=== PATIENT | male | born 1965 | race Caucasian/White ===

== ENCOUNTER 2024-03-25 18:24 | Emergency (ER) | payer BC, SELFPAY ==
[2024-03-25 18:32] VITALS: BP 174/99; PULSE 76; RESP 16; TEMP 36.5; O2SAT 96; BMI 36.9
--- NOTE | 2024-03-25 19:07 | ED_ITS ---
HPI - Wound/Laceration General Chief Complaint: Laceration/Wound Stated Complaint: tree branch opened up head Time Seen by Provider: 03/25/24 18:27 History of Present Illness HPI narrative: Patient is a 58-year-old gentleman who was moving his neighbor's lawn on a riding lawn more when he came across a very sharp brain showed on a tree. This branch of avulsed a strip from his scalp approximately quarter of a cm wide in a 7 configuration on the top of his head. Of the wound is approximated. Patient received no direct blunt trauma to the head. Bleeding began immediately and has now stopped. Other than the missing tissue of the wound is well-approximated and non full-thickness. Patient neurologically has no complaints or concerns and does not take any blood thinners. He states he is up-to-date on his tetanus shot. Related Data Home Medications ?Medication ?Instructions ?Recorded ?Confirmed hydrochlorothiazide 12.5 mg tablet 12.5 mg PO DAILY 03/25/24 03/25/24 lansoprazole 30 mg capsule,delayed 30 mg PO DAILY 03/25/24 03/25/24 release losartan 100 mg tablet 100 mg PO DAILY 03/25/24 03/25/24 sildenafil 100 mg tablet 100 mg PO DAILY PRN 03/25/24 03/25/24 Allergies Allergy/AdvReac Type Severity Reaction Status Date / Time codeine AdvReac Unknown Vomiting Verified 03/25/24 18:31 Review of Systems Status of ROS: Reports: 10 or more systems reviewed and unremarkable except as noted in History and below Exam Narrative: Exam Narrative: EXAM GENERAL: Patient appears comfortable and well. EYES: No scleral icterus. ENT: Tympanic membranes and oropharynx normal. THYROID: no thyroid nodules or thyromegaly. LYMPH: No supraclavicular or cervical lymphadenopathy. SKIN: Avulsion of skin noted on the scalp as above. Total length approximately 15 cm EXT: No dependent lower extremity pedal edema. HEART: Regular rate and rhythm with no murmurs, rubs, or gallops. LUNGS: Clear to auscultation bilaterally with no crackles or wheezes. ABD: Soft, non tender, non distended. PSYCH: Good eye contact, speech is not pressured. Const: Vital Signs, click to edit/add: Vital Signs - 24 hr 03/25/24 18:32 Temperature 97.7 F Pulse Rate [Pulse Oximeter] 76 Respiratory Rate 16 Blood Pressure [Ri ght Upper Arm] 174/99 H Pulse Oximetry 96 Oxygen Delivery Me thod Room Air Course Course ED Course: Patient seen and examined. Wound was sterilely cleaned. Vital Signs Vital signs: Initial Vital Signs Temperature 97.7 F 03/25/24 18:32 Temperature Source Temporal Artery Scan 03/25/24 18:32 Pulse Rate 76 03/25/24 18:32 Pulse Rhythm Regular 03/25/24 18:32 Respiratory Rate 16 03/25/24 18:32 Blood Pressure 174/99 H 03/25/24 18:32 Blood Pressure Mean 124 H 03/25/24 18:32 Blood Pressure Position Sitting 03/25/24 18:32 Pulse Oximetry 96 03/25/24 18:32 Oxygen Delivery Method Room Air 03/25/24 18:32 Vital Signs Temperature 97.7 F 03/25/24 18:32 Pulse Rate 76 03/25/24 18:32 Respiratory Rate 16 03/25/24 18:32 Blood Pressure 174/99 H 03/25/24 18:32 Pulse Oximetry 96 03/25/24 18:32 Oxygen Delivery Method Room Air 03/25/24 18:32 Temperature 97.7 F 03/25/24 18:32 Pulse Rate 76 03/25/24 18:32 Respiratory Rate 16 03/25/24 18:32 Blood Pressure 174/99 H 03/25/24 18:32 Pulse Oximetry 96 03/25/24 18:32 Oxygen Delivery Method Room Air 03/25/24 18:32 MDM - Wound/Laceration MDM Narrative Medical decision making narrative: Patient presents with avulsion of a very narrow strip off non full-thickness skin on his scalp. He is up-to-date on his tetanus shot. He did not receive any direct blunt trauma to his head. He was wearing a hat which seems to have helped. This time I do note impressive avulsion/abrasion but I do not believe closure of the wound would be helpful as it is not full thickness. I did instruct him on wound care with triple antibiotic and bandage is to keep clean. I do suspect he will he will steadily over the next 10-14 days. Discharge Plan Discharge Clinical Impression: Avulsion of skin Patient Disposition: Home, Self-Care Condition: Stable Instructions: Skin Avulsion (ED) Additional Instructions: Daily dressing changes with triple antibiotics or bacitracin Keep wound clean Follow-up with your doctor as needed. Activity Level: No Restrictions Discharge Diet: Regular Prescriptions: No Action sildenafil 100 mg tablet 100 mg PO DAILY PRN lansoprazole 30 mg capsule,delayed release(DR/EC) 30 mg PO DAILY losartan 100 mg tablet 100 mg PO DAILY hydrochlorothiazide 12.5 mg tablet 12.5 mg PO DAILY Stand Alone Forms: [employer] Info Instructions
== END 2024-03-25 19:34 | disposition home or self-care (01) ==
LOC: ED 19:31
PROVIDERS: Emergency Provider Internal Medicine
DX: S00.01XA Abrasion of scalp, initial encounter (principal)
CPT/HCPCS: 99282; 99283

== ENCOUNTER 2025-04-16 06:19 | Day surgery (SDC) | payer BC, SELFPAY ==
[2025-04-16] VITALS (12 sets, daily range): BP systolic 135–173; BP diastolic 82–98; PULSE 65–76; RESP 16–18; TEMP 36.2–36.6; O2SAT 93–100; BMI 36.9
[2025-04-16] MEDS: LACTATED RINGERS 1000 ML 1,000 ML 100 ML IV ×2 (06:30→08:26)
[2025-04-16] MEDS: SODIUM CHLORIDE 0.9 % (FLUSH) 10 ML SYRINGE IVF (06:45)
--- NOTE | 2025-04-16 07:05 | W.PM.H&PU ---
History & Physical Update History & Physical Update H&P Reviewed and patient assessed: No changes noted
--- NOTE | 2025-04-16 07:05 | PM.GSPRC ---
Operative Note Date of procedure: 04/16/25 Pre-op diagnosis: 1. Symptomatic umbilical hernia. Post-op diagnosis: 1. Incarcerated umbilical hernia containing preperitoneal fat. Type of Procedure: 1. Open umbilical hernia repair with mesh. Indications: 59-year-old male was seen in clinic for evaluation of umbilical hernia. Patient initially noticed a protrusion at his umbilicus several weeks prior to his presentation. Patient noticed when he was doing heavy lifting, the pain was bothersome. He denies any nausea or vomiting. On clinical exam at the superior aspect of the umbilicus there was an umbilical bulge that is approximately quarter in size. This was reducible. The fascial defect was felt to be approximately 1 cm. Given patient's clinical history and his physical exam, an open umbilical hernia repair was recommended. The procedure was discussed in detail. The risks associated procedure including infection, bleeding, injury to intra-abdominal organs, hernia recurrence, and the need for additional procedures were all discussed with the patient, and he agreed to proceed. Procedure Description: After discussing the risks and benefits of the procedure, the patient signed informed consent.? The operative site was marked and the patient was brought to the operating room and placed on the operating table in supine position.? Care was taken to pad the patient's pressure points.?? The patient was then intubated by anesthesia.?? The operative site was then prepped and draped in the usual sterile fashion.? A time-out was then performed. Local anesthetic was injected at the surgical site. A curvilinear skin incision was made with a scalpel at the superior aspect of umbilicus. Subcutaneous tissue was dissected with electrocautery down to the hernia sac and anterior fascia. The hernia sac was dissected off of the anterior fascia and subcutaneous fat around the fascial defect was dissected away from the fascial defect with cautery. Preperitoneal fat incarcerated through the fascial defect was reduced into the preperitoneal space. The fascial defect was 1.3 cm. I then developed preperitoneal space for mesh insertion. This was done circumferentially with cautery. Hemostasis was achieved with cautery. A small Ventralex ST mesh patch was then inserted into preperitoneal space and secured to the fascia using 0-0 Neurolon interrupted stitches. I examined my closure and no defects were identified between the fascia and the mesh. Fascia was re-approximated over the mesh with a running 2-0 Vicryl stitch. Additional local anesthetic was injected into subcutaneous tissues. An umbilicus was tacked down with interrupted 3-0 Vicryl stitches. Subdermal layer was closed with interrupted sutures using 3-0 Vicryl. Skin was closed with 4-0 Monocryl using subcuticular stitch. Steri strips were applied over the incision. I then placed a folded sterile 2 x 2 and 4x4 gauze over the incision and covered it with tape. All counts were correct at the end of the case. Patient tolerated the procedure well and was transferred to PACU without any complications. Findings: Fascial defect is 1.3 cm. Implants: Bard Ventralex ST mesh Anesthesia: GETA Surgeon: Yuri Shah MD Estimated blood loss (mL): 5 Condition: stable Disposition: PACU
--- NOTE | 2025-04-16 07:52 | P.ANES_ITS ---
Anesthesia Charges Start Date/Time Anesthesia Start Date: 04/16/25 Anesthesia Start Time: 07:25 Stop Date/Time Anesthesia Stop Date: 04/16/25 Anesthesia Stop Time: 08:38 Coding CPT Codes CPT Codes: ANESTH REPAIR OF HERNIA - 63414 ([id number]) P2 - PATIENT W/MILD SYST DISEASE, QK - LAW CLERK 2-4 CNCRNT ANES PROC, QX - TEST PULLER SVC W/ MD MED DIRECTION
--- NOTE | 2025-04-16 07:52 | W.ANESCHARGE ---
Anesthesia Charges Start Date/Time Anesthesia Start Date: 04/16/25 Anesthesia Start Time: 07:25 Stop Date/Time Anesthesia Stop Date: 04/16/25 Anesthesia Stop Time: 08:38 Coding CPT Codes CPT Codes: ANESTH REPAIR OF HERNIA - 80222 ([id number]) P2 - PATIENT W/MILD SYST DISEASE, QK - ENDBAND SIZER 2-4 CNCRNT ANES PROC, QX - MOTHER TESTER SVC W/ MD MED DIRECTION
[2025-04-16] MEDS: LIDOCAINE 1%-EPI 1:100,000 20 ML INFILTRATI (08:14)
[2025-04-16] MEDS: BUPIVACAINE 0.25% 30 ML INJECTION (08:14)
--- NOTE | 2025-04-16 08:38 | P.ANES_ITS ---
Anesthesia Charges Start Date/Time Anesthesia Start Date: 04/16/25 Anesthesia Start Time: 07:25 Stop Date/Time Anesthesia Stop Date: 04/16/25 Anesthesia Stop Time: 08:38 Coding CPT Codes CPT Codes: ANESTH REPAIR OF HERNIA - 14374 ([id number]) P2 - PATIENT W/MILD SYST DISEASE, QK - SODA JERKER 2-4 CNCRNT ANES PROC, QX - INBOUND SALES REPRESENTATIVE SVC W/ MD MED DIRECTION
--- NOTE | 2025-04-16 08:38 | W.ANESCHARGE ---
Anesthesia Charges Start Date/Time Anesthesia Start Date: 04/16/25 Anesthesia Start Time: 07:25 Stop Date/Time Anesthesia Stop Date: 04/16/25 Anesthesia Stop Time: 08:38 Coding CPT Codes CPT Codes: ANESTH REPAIR OF HERNIA - 71181 ([id number]) P2 - PATIENT W/MILD SYST DISEASE, QK - SECONDS HANDLER 2-4 CNCRNT ANES PROC, QX - HORTICULTURAL AGENT SVC W/ MD MED DIRECTION
== END 2025-04-16 10:07 | disposition home or self-care (01) ==
PROVIDERS: PCP Family Medicine; Visit Provider Surgery
PROC: (CPT 49592; principal; 2025-04-16 07:30)
DX: K42.0 Umbilical hernia with obstruction, without gangrene (principal)
CPT/HCPCS: 49592; 00830; C1781; J0330; J0665; J0690; J1100; J1885; J2250; J2371; J2405; J2704; J3010; J3490; J7120